=== PATIENT | male | born 1960 | race Caucasian/White ===

== ENCOUNTER 2018-01-21 21:51 | Observation (INO) | payer BC, SELFPAY ==
[2018-01-21 21:53] VITALS: BP 123/75; PULSE 117; RESP 16; TEMP 37.3; O2SAT 94; BMI 23.7
--- NOTE | 2018-01-21 22:13 | EKG12_ITS ---
Test Reason : FEVER Blood Pressure : / mmHG Vent. Rate : 101 BPM Atrial Rate : 101 BPM P-R Int : 134 ms QRS Dur : 082 ms QT Int : 322 ms P-R-T Axes : 059 071 015 degrees QTc Int : 417 ms Sinus tachycardia Nonspecific ST segment abnormality Confirmed by GRAHAM BRIONES, TESSY ([id number]), supervising editor news reel BRIAN HAYS ([id number]) on 02/01/2018 6:47:00 PM Referred By: JAS Confirmed By:TESSY STEVENSON MD
--- NOTE | 2018-01-21 22:20 | RAD_ITS ---
STUDY: X-RAY CHEST REASON FOR EXAM: Male, 57 years old. Fever TECHNIQUE: Frontal view of the chest COMPARISON: 04/06/2017 FINDINGS: Again noted is a right sided port with its tip in the superior vena cava. The lungs are clear. There are no pleural effusions. There is no pneumothorax. The heart is normal in size. The visualized osseous structures are within normal limits. RAD/Chest 1 View (Portable) IMPRESSION: No acute thoracic pathology. Electronically Signed: Kolby Chamberlain, at 23:45 EDT Tel , Service support ,
--- NOTE | 2018-01-21 22:23 | ED.DCSUM_ITS ---
- ER Visit Summary Date of Service: 01/21/18 Chief Complaint: [] Lung cancer, chemotherapy 2 weeks ago, neutropenia, temperature 103 History of Present Illness: The patient is a 57 M [] diagnosed with lung cancer about 1 year ago he has had various rounds of chemotherapy, he recently had chemotherapy 2 weeks ago, he was scheduled to have chemotherapy last week but is blood counts were too low so that was tabled, he was in his usual state of good health today when he suddenly spiked temperature 103 and he was brought to the emergency department. He has had no change in cough chronic he has had no antibiotics recently no exposures to anyone has been ill or tainted food normal bowel bladder habits no skin rashes no headache or neck stiffness he does have a history of metastasis to lymph nodes and brain he did receive radiation therapy to his brain his cancer is not resectable Physical Examination: [] Is 99.2 he is resting comforting the bed he is awake and alert his neck is very supple his nose and throat unremarkable his oral cavity is unremarkable his lungs are diminished the heart tones are unremarkable 110 he has a Mediport right chest that is nontender the abdomen soft nontender the backs unremarkable is moving all 4 extremities no signs of meningitis no signs of sepsis Test Results: [] Emergency Department Course and Treatment: [] In all the above the sepsis protocol was pursued he is received IV fluids IV antibiotics blood cultures screening labs His white count is 26,000 he is slightly anemic his lactic acid is 1.8 the rest of his labs are generally unremarkable see those reports including chest x-ray, at this time given leukocytosis given his fever chemotherapy metastatic cancer of [facility] seen further management and admission Treatment Plan: [] Disposition: [] Admit stable pending hospitalist eval Impression: [] Fever recent chemotherapy metastatic lung cancer leukocytosis This note was generated with [employer] dictation software. It may contain incorrect words, spelling, and punctuation that were not noted in review of the chart prior to signing ED Disposition - Plan for ED Patient: Chief Complaint: Fever Referrals: Mina Moralez MD [Primary Care Provider] -
[2018-01-21 22:53] LABS: Hematocrit 28.4 % (40-54); Mean Corp Hgb Conc 31.7 g/gl (32-36); Mean Corpuscular Hgb 30.3 pg (27.0-32.0); Mean Corpuscular Volume 95.6 fL (80-94); Mean Platelet Vol. 10.2 fl (6.2-12.0); Platelet Count 86 K/mm3 (150-450); RBC Distribution Width CV 18.3 % (11.6-14.6); RBC Distribution Width SD 59.2 fl (35.1-43.9); Red Blood Count 2.97 M/mm3 (4.6-6.2); White Blood Count 26.4 K/mm3 (4.4-11.0)
[2018-01-21 22:54] LABS: Differential Indicated MANUAL DIFF; POSITIVE COUNT YES; POSITIVE DIFFERENTIAL YES; POSITIVE MORPHOLOGY YES
[2018-01-21 22:59] LABS: International Normalized Ratio 1.2; Prothrombin Time (Protime)PT. 14.7 SECONDS (11.7-14.9)
[2018-01-21 23:00] LABS: Partial Thromboplast Time 71.2 Seconds (24.1-36.2)
[2018-01-21 23:08] VITALS: TEMP 37.1
[2018-01-21 23:08] LABS: ALB/GLOB Ratio 0.7 RATIO (0.9-2.4); AST(SGOT) 33 U/L (15-37); Alanine Aminotransfer ALT/SGPT 21 U/L (16-61); Albumin, Serum 3.2 g/dL (3.2-5.0); Alkaline Phosphatase 159 U/L (45-117); Anion Gap 9 (5-15); BUN 10 mg/dL (7-18); BUN/Creat Ratio 10.7 RATIO (10-20); Calcium,Total 8.6 mg/dL (8.5-10.1); Chloride 101 mmol/L (98-107); Creatinine, Serum 0.93 mg/dL (0.70-1.30); EST Glomerular Filtration Rate 88 mL/min (>60); Est Glom Filt Rate - Afr Amer 107 mL/min (>60); Estimated Creatinine Clearance 96.65 ml/min; Globulin 4.3 g/dL (2.2-4.2); Glucose 171 mg/dL (74-106); Potassium 3.8 mmol/L (3.5-5.1); Protein, Total 7.5 g/dL (6.4-8.2); Sodium Level 137 mmol/L (136-145)
[2018-01-21 23:10] VITALS: BP 115/55; PULSE 96; RESP 16; O2SAT 92
[2018-01-21 23:14] LABS: Lactic Acid 1.8 mmol/L (0.4-2.0)
[2018-01-21 23:26] LABS: Lymphocyte 13 % (19-41); Metamyelocyte 1 % (0-1); Monocyte 9 % (0-10); Neutrophil-Band 5 % (0-5); Neutrophil-Segmented 72 % (47-70); Total Cells Counted 100 (MANUAL DIFF)
[2018-01-21 23:28] LABS: Anisocytosis 1+; Platelet Estimate MOD DEC (ADEQ); Polychromasia 1+
[2018-01-22] VITALS (7 sets, daily range): BP systolic 108–125; BP diastolic 52–82; PULSE 90–101; RESP 15–18; TEMP 36.7–37.3; O2SAT 94–97; BMI 23.4; BMI 23.5
[2018-01-22] MEDS: 0.9% Normal Saline 1,000 ML 150 ML IV ×4 (00:25→23:31)
[2018-01-22 00:42] LABS: Bacteria 0 SEEN /hpf (None Seen); Mucous, Urine 0 SEEN /hpf (<or=2+); Red Blood Cells-Urine 0 SEEN /hpf (0-5); Squamous Epithelial Cells - UA 0 SEEN /hpf (0-5); White Blood Cells 0 SEEN /hpf (0-5)
--- NOTE | 2018-01-22 00:53 | DT_ITS ---
This patient was seen during an EMR downtime January 23, 2018 - January 30, 2018. This patient may have a combination of paper and electronic documentation or all paper documentation. All documentation is viewable within the e-chart portion of [facility] for each patient visit.
[2018-01-22 00:56] LABS: Color, Urine Yellow (Yellow); Glucose, Dipstick Normal (Normal); Ketone-Dipstick Negative (Negative); Leukocyte Esterase-Dipstick Negative /ul (Negative); Nitrite-Dipstick Negative (Negative); Occult Blood-Urine Negative /ul (Negative); Protein-Dipstick Negative (Negative); Urine Bilirubin Dipstick Negative (Negative); Urine Clarity Clear (Clear); Urine Urobilinogen Normal (Normal)
--- NOTE | 2018-01-22 01:05 | PCM.HP.STD ---
Problem List (1) Fever Status: Acute (2) Leukocytosis Status: Acute (3) Hypophosphatemia Status: Acute (4) Neutropenic sepsis Status: Acute (5) Pancytopenia Status: Acute (6) GERD (gastroesophageal reflux disease) Status: Chronic (7) Lupus erythematosus Status: Chronic (8) Metastatic lung cancer (metastasis from lung to other site) Status: Chronic (9) Non-small cell lung cancer Status: Chronic (10) Type 2 diabetes mellitus Status: Chronic History of Present Illness Date of Admission: 01/21/18 Chief Complaint: Leukocytosis The patient is a 57 year old male with past medical history of SLE, diabetes mellitus type 2, chronic pain syndrome and 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 Pt spiked a fever this evening to 103. He has no other symptoms. Nothing appeared to make his fever better or worse. His fever was constant. He also felt chill and fatigue. His last chemo treatment was 2 weeks ago and he is scheduled to have another chemo this Tuesday. No n/v. No diarrhea. No cough. Past Medical History Past Medical History (Chronic Problems): Chronic Problems Non-small cell lung cancer (Chronic) Metastatic lung cancer (metastasis from lung to other site) (Chronic) GERD (gastroesophageal reflux disease) (Chronic) Type 2 diabetes mellitus (Chronic) Lupus erythematosus (Chronic) Allergies No Known Allergies Allergy (Verified 01/21/18 21:55) Home Medications: Ambulatory Orders Medication Instructions Recorded Ascorbic Acid [Vitamin C] 250 mg PO DAILY 04/27/16 Hydroxychloroquine [Plaquenil] 200 mg PO LUNCH 04/27/16 Metformin(XR) [Glucophage Xr] 500 mg PO BID 04/27/16 Multivitamin [Daily Multiple 1 each PO DAILY 04/27/16 Vitamin] Pregabalin [Lyrica] 75 mg PO BID 04/27/16 Morphine [Morphine IR] 15 mg PO Q4H PRN PRN 04/03/17 Ondansetron [Zofran Odt] 8 mg PO Q8H PRN PRN 04/03/17 morphine SR tablet [Ms Contin] 30 mg PO Q12H 04/03/17 Magnesium Oxide [Mag-Ox 400] 400 mg PO DAILYCM #30 tablet 04/07/17 Famotidine [Pepcid] 40 mg PO QHS 01/22/18 Surgical History: - - Gamma knife surgery for single brain metastasis. Psychiatric History: No pertinent psych hx Smoking Status: Former smoker Drugs: None - *Family History Maternal History Items: No pertinent history Paternal History Items: No pertinent history Review of Systems Constitutional: Reports: Chills, Fever. Denies: Weight Change HEENT: Denies: Head Aches, Sinus Congestion, Sinus Drainage Cardiovascular: Denies: Chest Pain, Palpitations Respiratory: Denies: Cough, Shortness of breath at rest, Sputum production Gastrointestinal: Denies: Abdominal Pain, Nausea, Vomiting Genitourinary: Denies: Dysuria Musculoskeletal: Denies: Joint Pain, Joint Tenderness Skin: Denies: Rash, Wounds Neurological: Denies: Numbness, Tingling, Focal weakness Psychiatric: Denies: Anxiety, Depression, Homicidal Ideations, Suicidal Ideations Hematologic/ Lymphatic: Denies: Easy Bruising, Easy Bleeding VTE Information - Inpt Only VTE Present on Admission: No VTE Mechan Device Prophylaxis: SCD's VTE Pharm Prophylaxis ordered?: Yes Patient Problems: Active and Suspected Problems Fever (Acute) Leukocytosis (Acute) - Physical Exam General: Alert, Oriented x3, Cooperative HEENT: Atraumatic, PERRLA, EOMI, Normocephalic Neck: Supple, No JVD, Negative Carotid Bruits Lungs: Clear to auscultation, Normal air movement Cardiovascular: Regular rate, No murmurs, Murmur Abdomen: Bowel Sounds Present, Soft, Non Tender Extremities: No edema, Capillary Refill Less than 3 Seconds Skin: No rashes, No breakdown Musculoskeletal: No Tenderness to Palpation of Joints or Extremities Neurological: Cranial nerves II-XII grossly intact Psych/Mental Status: Normal Affect, Appropriate Vital Signs Temp Pulse Resp BP Pulse Ox 98.8 F 101 H 15 124/71 H 92 01/21/18 23:08 01/22/18 00:30 01/22/18 00:30 01/22/18 00:30 01/21/18 23:10 Oxygen Delivery Method Room Air Weight: 81.6 kg Body Mass Index (BMI) 23.7 Laboratory Tests Past 24 Hrs 01/21/18 01/21/18 01/21/18 22:45 22:45 22:45 WBC 26.4 H RBC 2.97 L Hgb 9.0 L Hct 28.4 L MCV 95.6 H MCH 30.3 MCHC 31.7 L RDW 18.3 H RDW Differential 59.2 H Plt Count 86 L MPV 10.2 Neut % (Auto) Not Reportable Absolute Neuts (auto) Not Reportable Total Counted 100 Neutrophils % (Manual) 72 H Band Neutrophils % 5 Lymphocytes % (Manual) 13 L Monocytes % (Manual) 9 Metamyelocytes % 1 Diff Path Review May foll Platelet Estimate MOD DEC Polychromasia 1+ Anisocytosis 1+ PT 14.7 INR 1.2 APTT 71.2 H Sodium 137 Potassium 3.8 Chloride 101 Carbon Dioxide 27.0 Anion Gap 9 BUN 10 Creatinine 0.93 Estim Creat Clear Calc 96.65 Est GFR (MDRD) Af Amer 107 Est GFR (MDRD) Non-Af 88 BUN/Creatinine Ratio 10.7 Glucose 171 H Lactic Acid Calcium 8.6 Total Bilirubin 0.30 AST 33 ALT 21 Alkaline Phosphatase 159 H Total Protein 7.5 Albumin 3.2 Globulin 4.3 H Albumin/Globulin Ratio 0.7 L Urine Color Urine Clarity Urine pH Ur Specific [place] Urine Protein Urine Glucose (UA) Urine Ketones Urine Occult Blood Urine Nitrite Urine Bilirubin Urine Urobilinogen Ur Leukocyte Esterase Urine RBC Urine WBC Ur Squamous Epith Cells Urine Bacteria Urine Mucus 01/21/18 01/22/18 22:45 00:30 WBC RBC Hgb Hct MCV MCH MCHC RDW RDW Differential Plt Count MPV Neut % (Auto) Absolute Neuts (auto) Total Counted Neutrophils % (Manual) Band Neutrophils % Lymphocytes % (Manual) Monocytes % (Manual) Metamyelocytes % Diff Path Review Platelet Estimate Polychromasia Anisocytosis PT INR APTT Sodium Potassium Chloride Carbon Dioxide Anion Gap BUN Creatinine Estim Creat Clear Calc Est GFR (MDRD) Af Amer Est GFR (MDRD) Non-Af BUN/Creatinine Ratio Glucose Lactic Acid 1.8 Calcium Total Bilirubin AST ALT Alkaline Phosphatase Total Protein Albumin Globulin Albumin/Globulin Ratio Urine Color Yellow Urine Clarity Clear Urine pH 7.0 Ur Specific [place] 1.010 Urine Protein Negative Urine Glucose (UA) Normal Urine Ketones Negative Urine Occult Blood Negative Urine Nitrite Negative Urine Bilirubin Negative Urine Urobilinogen Normal Ur Leukocyte Esterase Negative Urine RBC Pending Urine WBC Pending Ur Squamous Epith Cells Pending Urine Bacteria Pending Urine Mucus Pending Assessment/Plan All Active Problems Fever (Acute) Leukocytosis (Acute) Oral thrush (Acute) Hyponatremia (Acute) Hypophosphatemia (Acute) Hypomagnesemia (Acute) Neutropenic sepsis (Acute) Pancytopenia (Acute) 57 year old male with past medical history of SLE, diabetes mellitus type 2, chronic pain syndrome and 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 1) Fever: Unclear etiology. Workup negative. Possible paraneoplastic syndrome. Will start zosyn and vanco for empiric coverage. Cultures pending. 2) Leukocytosis: Unclear etiology. Possible infectious etiology. Zosyn and vanco until cultures resulted. 3) NSCL cancer w/ mets to brain s/o gamma knife and docetaxel: Supportive care. 4) Chronic issues: SLE, DMII, and chronic pain: Resume home meds. Monitor. 5) Prophylaxis: Heparin / SCD.
[2018-01-22 01:49] LABS: Absolute Lymphocyte Count 3.42 X10^3/ul (0.83-4.51); Absolute Neutrophil Count 20.3 X10^3/uL (2.0-7.7); Lymphocyte # 3.42 X10^3/ul (4.0)
--- NOTE | 2018-01-22 04:16 | PCM.RX.CS ---
Consult Pharmacy has been consulted to manage selected antiobiotic: Vancomycin Type of Consult: New start Suspected Infection: Sepsis Prior Doses of Antibiotics Received/Current Regimen: Medications Vancomycin HCl 1,750 mg/ (Sodium Chloride) 535 mls @ 260 mls/hr IV Q12H LAUREN Discontinued Medications Vancomycin HCl 1,750 mg/ (Dextrose) 535 mls @ 250 mls/hr IV RX TO DOSE ONE Stop: 01/22/18 04:02 Last Admin: 01/22/18 02:42 Dose: 250 mls/hr Labs: Sodium 137 mmol/L (136-145) 01/21/18 22:45 Potassium 3.8 mmol/L (3.5-5.1) 01/21/18 22:45 Chloride 101 mmol/L (98-107) 01/21/18 22:45 Carbon Dioxide 27.0 mmol/L (21.0-32.0) 01/21/18 22:45 Anion Gap 9 (5-15) 01/21/18 22:45 BUN 10 mg/dL (7-18) 01/21/18 22:45 Creatinine 0.93 mg/dL (0.70-1.30) 01/21/18 22:45 Est GFR (MDRD) Af Amer 107 mL/min (>60) 01/21/18 22:45 Est GFR (MDRD) Non-Af 88 mL/min (>60) 01/21/18 22:45 BUN/Creatinine Ratio 10.7 RATIO (10-20) 01/21/18 22:45 Glucose 171 mg/dL (74-106) H 01/21/18 22:45 Weight used for dosin.6 kg Estimated Creatinine Clearance: 96 Goal Trough: 15-20 mcg/mL Pharmacy Plan for Drug Dosing: Pharmacy Service will continue to monitor and adjust dosing as required. Follow-Up Labs: Trough Vancomycin Labs to be done on [date and time ordered]: 01/23/18 @1430
[2018-01-22 04:58] LABS: Lactic Acid 1.3 mmol/L (0.4-2.0)
[2018-01-22] MEDS: Piperacil/Tazobactam 3.375 GM/50 ML ML IV ×3 (05:34→23:32)
[2018-01-22] MEDS: Heparin Injection (Vial) 5,000 UNIT/ML VIAL 5000 UNIT SC ×3 (05:34→21:19)
--- NOTE | 2018-01-22 05:40 | NURSING ---
PT DOES NOT KNOW HOME MEDICATIONS. IF HIS MOTHER COME IN TODAY SHE WILL BRING HIS MED LIST.
[2018-01-22 07:45] LABS: Hematocrit 27.5 % (40-54); Hemoglobin 8.6 g/dl (13.0-16.5); Mean Corp Hgb Conc 31.3 g/gl (32-36); Mean Corpuscular Hgb 30.2 pg (27.0-32.0); Mean Corpuscular Volume 96.5 fL (80-94); Mean Platelet Vol. 11.1 fl (6.2-12.0); Platelet Count 104 K/mm3 (150-450); RBC Distribution Width CV 18.5 % (11.6-14.6); Red Blood Count 2.85 M/mm3 (4.6-6.2); White Blood Count 27.2 K/mm3 (4.4-11.0)
[2018-01-22 07:49] LABS: Differential Indicated MANUAL DIFF; POSITIVE COUNT YES; POSITIVE DIFFERENTIAL YES; POSITIVE MORPHOLOGY YES
[2018-01-22 08:14] LABS: Eosinophil 1 % (0-5); Lymphocyte 13 % (19-41); Metamyelocyte 3 % (0-1); Monocyte 12 % (0-10); Myelocyte 1 (0-0); Neutrophil-Band 11 % (0-5); Neutrophil-Segmented 59 % (47-70); Platelet Estimate SLT (ADEQ); Red Cell Morphology NORM C+C NORMAL (NORM C&C); Total Cells Counted 100 (MANUAL DIFF)
[2018-01-22] MEDS: Magnesium Oxide 400 MG Tablet PO ×2 (09:10→17:01)
[2018-01-22] MEDS: Multivitamins,Therapeutic Tablet 1 TABLET PO (09:10)
[2018-01-22] MEDS: Pregabalin 75 MG Capsule PO ×2 (09:10→21:18)
[2018-01-22] MEDS: Ascorbic Acid 500 MG Tablet 250 MG PO (09:10)
--- NOTE | 2018-01-22 10:10 | PCM.PN.HOSP ---
Patient Problems: Active and Suspected Problems Fever (Acute) Leukocytosis (Acute) Subjective: No events overnight. No further fever. Vitals/I&O's: Vital Signs Temp Pulse Resp BP Pulse Ox 36.7 C 99 18 108/60 94 01/22/18 07:48 01/22/18 07:48 01/22/18 07:48 01/22/18 07:48 01/22/18 07:48 Oxygen Delivery Method Room Air Weight: 80.649 kg Body Mass Index (BMI) 23.4 Intake and Output for Last 24 Hours 01/20/18 01/21/18 01/22/18 23:59 23:59 23:59 Intake Total 1323 / 1323 Balance 1323 / 1323 General: Alert, No apparent distress HEENT: Atraumatic, Normocephalic Neck: No Nodes, Thyroid Normal Size and Texture Lungs: Clear to auscultation, Normal air movement, No rhonchi, No wheeze Cardiovascular: Regular rate, Regular Rhythm, Normal S1, Normal S2, No murmurs Abdomen: Bowel Sounds Present, Soft, Non Tender, Non-Distended, No Hepato-splenomegaly Extremities: No edema, No Calf Tenderness Skin: No rashes, No breakdown Psych/Mental Status: Normal Affect, Appropriate Laboratory Results 01/22/18 03:48: Lactic Acid 1.3 01/22/18 03:48: WBC 27.2 H, RBC 2.85 L, Hgb 8.6 L, Hct 27.5 L, MCV 96.5 H, MCH 30.2, MCHC 31.3 L, RDW 18.5 H, RDW Differential 60.0 H, Plt Count 104 L, MPV 11.1, Neut % (Auto) Not Reportable, Absolute Neuts (auto) Not Reportable, Total Counted 100, Neutrophils % (Manual) 59, Band Neutrophils % 11 H, Lymphocytes % (Manual) 13 L, Monocytes % (Manual) 12 H, Eosinophils % (Manual) 1, Metamyelocytes % 3 H, Myelocytes % 1 H, Diff Path Review May foll, Platelet Estimate SLT, RBC Morphology NORM C+C Current Medications Acetaminophen (Tylenol) 650 mg PO Q4H PRN PRN PRN Reason: FEVER Ascorbic Acid (Vitamin C) 250 mg PO DAILY LAUREN Last Admin: 01/22/18 09:10 Dose: 250 mg Famotidine (Pepcid) 40 mg PO QHS [facility] Heparin Sodium (Beef Lung) (Heparin 500 Unit/5 Ml (100/Ml)) 500 unit IV UD PRN PRN Reason: HEPARIN FLUSH Heparin Sodium (Porcine) (Heparin Na) 5,000 unit SC Q8 [facility] Last Admin: 01/22/18 05:34 Dose: 5,000 units Hydroxychloroquine Sulfate (Plaquenil) 200 mg PO LUNCH [facility] Sodium Chloride () 1,000 mls @ 150 mls/hr IV .Q6H40M [facility] Last Admin: 01/22/18 07:52 Dose: 150 mls/hr Piperacillin Sod/Tazobactam Sod (Zosyn) 3.375 gm in 50 mls @ 12.5 mls/hr IV Q8 [facility] Last Admin: 01/22/18 05:34 Dose: 12.5 mls/hr Vancomycin HCl 1,750 mg/ (Sodium Chloride) 535 mls @ 260 mls/hr IV Q12H [facility] Sodium Chloride () 250 mls @ 15 mls/hr IV .[id number] PRN PRN Reason: SALINE FLUSH Magnesium Oxide (Mag-Ox 400) [facility] Last Admin: 01/22/18 09:10 Dose: 400 mg Metformin HCl (Glucophage Xr) [facility] [address] Last Admin: 01/22/18 09:10 Dose: 500 mg Morphine Sulfate (Ms Contin) 30 mg PO Q12 [facility] Last Admin: 01/22/18 09:10 Dose: 30 mg Morphine Sulfate (Roxanol (Ir Oral Solution)) 15 mg PO Q4H PRN PRN PRN Reason: pain Multivitamins (Multivitamin) [facility] Last Admin: 01/22/18 09:10 Dose: 1 tablet Ondansetron HCl (Zofran Odt) 8 mg PO Q8H PRN PRN PRN Reason: NAUSEA Pregabalin (Lyrica) 75 mg PO BID [facility] Last Admin: 01/22/18 09:10 Dose: 75 mg Sodium Chloride () 10 ml IV UD PRN PRN Reason: VAD FLUSH Medical Necessity - Tobacco Use Smoking Status: Former smoker Assessment/Plan All Active Problems Fever (Acute) Leukocytosis (Acute) Oral thrush (Acute) Hyponatremia (Acute) Hypophosphatemia (Acute) Hypomagnesemia (Acute) Neutropenic sepsis (Acute) Pancytopenia (Acute) 1. SIRS: work up has been negative so far BCx pending on empiric Zosyn and Vanc consider dc abx if cx are negative and no further issues 2. Leukocytosis: up slightly today per Clinisync, last WBC was 5.6 on 01/09 (office notes not available) unclear if patient has received any granulocyte stimulating agent recently, though doubtful with normal WBC monitor. +Bandemia today request medical records. 3. NSCLC follow up with Dr. Hussein as outpt. 4. DVT proph: moderate risk. SQ heparin. Code Visit Inpatient E&M: 30547 Subs Hosp L2
--- NOTE | 2018-01-22 10:17 | PN_ITS ---
Patient Problems: Active and Suspected Problems Fever (Acute) Leukocytosis (Acute) Subjective: No events overnight. No further fever. Vitals/I&O's: Vital Signs Temp Pulse Resp BP Pulse Ox 36.7 C 99 18 108/60 94 01/22/18 07:48 01/22/18 07:48 01/22/18 07:48 01/22/18 07:48 01/22/18 07:48 Oxygen Delivery Method Room Air Weight: 80.649 kg Body Mass Index (BMI) 23.4 Intake and Output for Last 24 Hours 01/20/18 01/21/18 01/22/18 23:59 23:59 23:59 Intake Total 1323 / 1323 Balance 1323 / 1323 General: Alert, No apparent distress HEENT: Atraumatic, Normocephalic Neck: No Nodes, Thyroid Normal Size and Texture Lungs: Clear to auscultation, Normal air movement, No rhonchi, No wheeze Cardiovascular: Regular rate, Regular Rhythm, Normal S1, Normal S2, No murmurs Abdomen: Bowel Sounds Present, Soft, Non Tender, Non-Distended, No Hepato- splenomegaly Extremities: No edema, No Calf Tenderness Skin: No rashes, No breakdown Psych/Mental Status: Normal Affect, Appropriate Laboratory Results 01/22/18 03:48: Lactic Acid 1.3 01/22/18 03:48: WBC 27.2 H, RBC 2.85 L, Hgb 8.6 L, Hct 27.5 L, MCV 96.5 H, MCH 30.2, MCHC 31.3 L, RDW 18.5 H, RDW Differential 60.0 H, Plt Count 104 L, MPV 11.1, Neut % (Auto) Not Reportable, Absolute Neuts (auto) Not Reportable, Total Counted 100, Neutrophils % (Manual) 59, Band Neutrophils % 11 H, Lymphocytes % ( Manual) 13 L, Monocytes % (Manual) 12 H, Eosinophils % (Manual) 1, Metamyelocytes % 3 H, Myelocytes % 1 H, Diff Path Review May foll, Platelet Estimate SLT, RBC Morphology NORM C+C Current Medications Acetaminophen (Tylenol) 650 mg PO Q4H PRN PRN PRN Reason: FEVER Ascorbic Acid (Vitamin C) 250 mg PO DAILY [facility] Last Admin: 01/22/18 09:10 Dose: 250 mg Famotidine (Pepcid) 40 mg PO QHS [facility] Heparin Sodium (Beef Lung) (Heparin 500 Unit/5 Ml (100/Ml)) 500 unit IV UD PRN PRN Reason: HEPARIN FLUSH Heparin Sodium (Porcine) (Heparin Na) 5,000 unit SC Q8 [facility] Last Admin: 01/22/18 05:34 Dose: 5,000 units Hydroxychloroquine Sulfate (Plaquenil) 200 mg PO LUNCH [facility] Sodium Chloride () 1,000 mls @ 150 mls/hr IV .Q6H40M [facility] Last Admin: 01/22/18 07:52 Dose: 150 mls/hr Piperacillin Sod/Tazobactam Sod (Zosyn) 3.375 gm in 50 mls @ 12.5 mls/hr IV Q8 [facility] Last Admin: 01/22/18 05:34 Dose: 12.5 mls/hr Vancomycin HCl 1,750 mg/ (Sodium Chloride) 535 mls @ 260 mls/hr IV Q12H [facility] Sodium Chloride () 250 mls @ 15 mls/hr IV .[id number] PRN PRN Reason: SALINE FLUSH Magn[facility] ([facility]Ox 400) [facility] Last Admin: 01/22/18 09:10 Dose: 400 mg Metformin HCl (Glucophage Xr) [facility] Last Admin: 01/22/18 09:10 Dose: 500 mg Morphine Sulfate (Ms Contin) 30 mg PO Q12 [facility] Last Admin: 01/22/18 09:10 Dose: 30 mg Morphine Sulfate (Roxanol (Ir Oral Solution)) 15 mg PO Q4H PRN PRN PRN Reason: pain Multivitamins (Multivitamin) [facility] Last Admin: 01/22/18 09:10 Dose: 1 tablet Ondansetron HCl (Zofran Odt) 8 mg PO Q8H PRN PRN PRN Reason: NAUSEA Pregabalin (Lyrica) 75 mg PO BID [facility] Last Admin: 01/22/18 09:10 Dose: 75 mg Sodium Chloride () 10 ml IV UD PRN PRN Reason: VAD FLUSH Medical Necessity - Tobacco Use Smoking Status: Former smoker Assessment/Plan All Active Problems Fever (Acute) Leukocytosis (Acute) Oral thrush (Acute) Hyponatremia (Acute) Hypophosphatemia (Acute) Hypomagnesemia (Acute) Neutropenic sepsis (Acute) Pancytopenia (Acute) 1. SIRS: * work up has been negative so far * BCx pending * on empiric Zosyn and Vanc * consider dc abx if cx are negative and no further issues 2. Leukocytosis: * up slightly today * per Clinisync, last WBC was 5.6 on 01/09 (office notes not available) * unclear if patient has received any granulocyte stimulating agent recently, though doubtful with normal WBC * monitor. * +Bandemia today * request medical records. 3. NSCLC * follow up with Dr. Hussein as outpt. 4. DVT proph: moderate risk. SQ heparin. Code Visit Inpatient E&M: 15153 Subs Hosp L2
--- NOTE | 2018-01-22 10:52 | PCA ---
Addendum entered by Dhiraj Almazan 01/22/18 12:42: Received medical records from [facility]. Placed on chart, informed primary RN and weigher and charger. Original Note: Faxed signed release of medical records to [facility] STAT fax, .
[2018-01-22] MEDS: Hydroxychloroquine 200 MG Tablet PO (12:10)
[2018-01-22] MEDS: Glucerna Shake 120 ML LIQUID PO ×3 (14:32→21:18)
[2018-01-22] MEDS: Famotidine 20 MG Tablet 40 MG PO (21:19)
[2018-01-23 00:16] LABS: Absolute Lymphocyte Count 3.54 X10^3/ul (0.83-4.51); Lymphocyte # 3.54 X10^3/ul (4.0); Neutrophil # 19.04 X10^3/uL (2.7-7.7)
--- NOTE | 2018-01-23 00:26 | NURSING ---
PT O2 SAT DECREASING DOWN TO 86%, APPLIED 2L O2 VIA NC
[2018-01-23 03:35] VITALS: BP 115/63; PULSE 92; RESP 18; TEMP 37.1; O2SAT 98
[2018-01-26 15:56] LABS: Differential Indicated MANUAL DIFF; Hematocrit 28.1 % (40-54); Hemoglobin 8.6 g/dl (13.0-16.5); Mean Corp Hgb Conc 30.6 g/gl (32-36); Mean Corpuscular Hgb 30.8 pg (27.0-32.0); Mean Corpuscular Volume 100.7 fL (80-94); Mean Platelet Vol. 11.5 fl (6.2-12.0); POSITIVE COUNT YES; POSITIVE DIFFERENTIAL YES; POSITIVE MORPHOLOGY YES; Platelet Count 116 K/mm3 (150-450); RBC Distribution Width SD 63.7 fl (35.1-43.9); Red Blood Count 2.79 M/mm3 (4.6-6.2); White Blood Count 20.3 K/mm3 (4.4-11.0)
[2018-01-26 15:57] LABS: Eosinophil 1 % (0-5); Lymphocyte 12 % (19-41); Metamyelocyte 1 % (0-1); Monocyte 20 % (0-10); Myelocyte 1 (0-0); Neutrophil-Band 16 % (0-5); Neutrophil-Segmented 49 % (47-70); Total Cells Counted 100 (MANUAL DIFF)
[2018-01-26 15:59] LABS: Absolute Lymphocyte Count 2.44 X10^3/ul (0.83-4.51); Absolute Neutrophil Count 13.2 X10^3/uL (2.0-7.7); Lymphocyte # 2.44 X10^3/ul (4.0)
[2018-01-27 08:59] LABS: Differential Indicated MANUAL DIFF; Hematocrit 27.6 % (40-54); Hemoglobin 8.5 g/dl (13.0-16.5); Mean Corp Hgb Conc 30.8 g/gl (32-36); Mean Corpuscular Hgb 30.8 pg (27.0-32.0); Mean Platelet Vol. 11.1 fl (6.2-12.0); Neutrophil-Band 3 % (0-5); Neutrophil-Segmented 76 % (47-70); POSITIVE COUNT YES; POSITIVE DIFFERENTIAL YES; POSITIVE MORPHOLOGY YES; Platelet Count 121 K/mm3 (150-450); RBC Distribution Width CV 18.6 % (11.6-14.6); RBC Distribution Width SD 61.1 fl (35.1-43.9); Red Blood Count 2.76 M/mm3 (4.6-6.2); White Blood Count 24.5 K/mm3 (4.4-11.0)
[2018-01-27 09:00] LABS: Eosinophil 1 % (0-5); Lymphocyte 14 % (19-41); Monocyte 6 % (0-10); Total Cells Counted 100 (MANUAL DIFF)
[2018-01-27 11:23] LABS: Hematocrit 26.1 % (40-54); Mean Corp Hgb Conc 30.7 g/gl (32-36); Mean Corpuscular Hgb 30.8 pg (27.0-32.0); Mean Corpuscular Volume 100.4 fL (80-94); Mean Platelet Vol. 10.9 fl (6.2-12.0); Platelet Count 114 K/mm3 (150-450); RBC Distribution Width CV 18.9 % (11.6-14.6); RBC Distribution Width SD 62.9 fl (35.1-43.9); Scan Indicated on CBC? Y/N NO; White Blood Count 17.4 K/mm3 (4.4-11.0)
[2018-01-28 10:04] LABS: Vancomycin, Trough Level 23.9 ug/mL (5.0-15.0)
[2018-02-01 11:01] LABS: Pathologist Review Reviewed
[2018-02-01 11:07] LABS: Pathologist Review Reviewed
[2018-02-01 11:12] LABS: Pathologist Review Reviewed
[2018-02-01 14:18] LABS: Anion Gap 9 (5-15); BUN 8 mg/dL (7-18); BUN/Creat Ratio 9.4 RATIO (10-20); Calcium,Total 8.4 mg/dL (8.5-10.1); Chloride 109 mmol/L (98-107); Creatinine, Serum 0.85 mg/dL (0.70-1.30); EST Glomerular Filtration Rate 98 mL/min (>60); Est Glom Filt Rate - Afr Amer 119 mL/min (>60); Estimated Creatinine Clearance 105.75 ml/min; Glucose 121 mg/dL (74-106); Potassium 3.9 mmol/L (3.5-5.1); Sodium Level 145 mmol/L (136-145)
== END 2018-01-24 15:45 | disposition home or self-care (01) ==
LOC: ED 22:34 → MS3 01-22 01:21
PROVIDERS: Internal Medicine; Admitting Provider Internal Medicine; Emergency Provider Emergency Medicine; Family Provider Family Medicine; PCP Family Medicine
DX: R50.9 Fever, unspecified (principal); M32.9 Systemic lupus erythematosus, unspecified; C34.90 Malignant neoplasm of unspecified part of unspecified bronchus or lung; C79.31 Secondary malignant neoplasm of brain; Z79.899 Other long term (current) drug therapy; K21.9 Gastro-esophageal reflux disease without esophagitis; G89.4 Chronic pain syndrome; Z87.891 Personal history of nicotine dependence; D61.818 Other pancytopenia; E11.42 Type 2 diabetes mellitus with diabetic polyneuropathy; C78.2 Secondary malignant neoplasm of pleura
CPT/HCPCS: 36415; 36591; 71045; 80048; 80053; 80202; 81001; 83605; 85025; 85027; 85610; 85730; 87040; 87086; 93005; 94762; 96361; 96365; 96366; 96367; 96372; 97802; 99218; 99284; J7030; J7040; A4216; G0378

== ENCOUNTER → 2018-12-05 | Outpatient (CLI) | payer MEDICARE, MEDICAID, SELFPAY ==
--- NOTE | 2018-12-05 13:59 | VDLE_ITS ---
Reason For Study: LEG SWELLING RIGHT LEFT GSV is normal. GSV is normal. CFV is compressible, spontaneous, phasic, CFV is compressible, spontaneous, phasic, competent and demonstrates normal competent, and demonstrates normal augmentation. augmentation. FV is compressible, spontaneous, phasic, FV is compressible, spontaneous, phasic, competent and demonstrates normal competent and demonstrates normal augmentation. augmentation. POP V is compressible, spontaneous, phasic, POP V is compressible, spontaneous, phasic, competent and demonstrates normal competent and demonstrates normal augmentation. augmentation. T/P Trunk is compressible. T/P Trunk is compressible. PTV is compressible. PTV is compressible. RT PerV is compressible. LT PerV is compressible. Procedure Exam performed in department. A preliminary report was called and/or faxed to Dr. Hussein. Interpretation Summary Deep veins of the lower extremities are bilaterally patent and compressible segmentally. There is no evidence of deep vein thrombosis on either side. Valvular competence appears intact within the proximal deep venous systems bilaterally. The greater saphenous veins appear bilaterally patent and compressible segmentally. Ordering Physician: Talib Hussein Referring Physician: Talib Hussein Performed By: Olive Hooks RVT
== END | disposition home or self-care (01) ==
LOC: CVS 13:57
PROVIDERS: Family Provider Family Medicine; PCP Family Medicine; Referring Provider Internal Medicine Hematology & Oncology; Visit Provider Internal Medicine Hematology & Oncology
DX: M79.89 Other specified soft tissue disorders (principal); C34.92 Malignant neoplasm of unspecified part of left bronchus or lung
CPT/HCPCS: 93970

== ENCOUNTER → 2019-03-15 | Outpatient (CLI) | payer MEDICARE, MEDICAID, SELFPAY ==
[2019-03-15] VITALS (7 sets, daily range): BP systolic 101–129; BP diastolic 42–69; PULSE 86–100; RESP 16–18; TEMP 36.1–36.3; O2SAT 99–100; BMI 23.1
== END | disposition home or self-care (01) ==
PROVIDERS: Family Provider Family Medicine; PCP Family Medicine; Referring Provider Internal Medicine Hematology & Oncology; Visit Provider Internal Medicine Hematology & Oncology
DX: D64.81 Anemia due to antineoplastic chemotherapy (principal); C34.92 Malignant neoplasm of unspecified part of left bronchus or lung
CPT/HCPCS: 36415; 36430; 86850; 86900; 86920; 86922; J7040; P9016; A4216

== ENCOUNTER 2019-06-09 08:54 | Outpatient (CLI) | payer MEDICARE, MEDICAID, SELFPAY ==
[2019-03-15 08:48] VITALS: BMI 23.1
[2019-06-09 10:06] VITALS: BP 141/70; PULSE 101; RESP 16; TEMP 36.8; O2SAT 97
[2019-06-09 10:27] VITALS: BP 131/62; PULSE 98; RESP 16; TEMP 36.9; O2SAT 100
[2019-06-09 11:21] VITALS: BP 130/66; PULSE 98; RESP 16; TEMP 36.7; O2SAT 96
[2019-06-09 12:21] VITALS: BP 110/78; PULSE 100; RESP 16; O2SAT 98
[2019-06-09 12:55] VITALS: BP 138/84; PULSE 107
[2019-06-09] MEDS: 0.9% Saline Lock 10 ML Syringe IV (12:58)
== END 2019-06-09 13:25 | disposition home or self-care (01) ==
LOC: MEDOUTP 08:55 → MS3 08:57
PROVIDERS: Family Provider Family Medicine; PCP Family Medicine; Referring Provider Internal Medicine Hematology & Oncology; Visit Provider Internal Medicine Hematology & Oncology
DX: D64.9 Anemia, unspecified (principal); C34.90 Malignant neoplasm of unspecified part of unspecified bronchus or lung
CPT/HCPCS: 36430; 86850; 86900; 86901; 86920; 86922; J7040; P9016; A4216